=== PATIENT | female | born 1985 | race African-American/Black ===

== ENCOUNTER 2025-08-27 10:38 | Emergency (ER) | payer MEDICAID ==
[~2025-08-27] VITALS: Ht 177.8 cm; Wt 95.0 kg
[2025-08-27 10:40] VITALS: O2SAT 99
[2025-08-27 11:11] LABS: BASOPHILS % 1.1 % (0.0-2.0); EOSINOPHILS % 2.0 % (0.0-5.0); HEMATOCRIT. 44.0 % (36.0-48.0); HEMOGLOBIN. 14.1 g/dL (12.0-16.0); LYMPHOCYTES % 31.0 % (20.0-50.0); MEAN PLATELET VOLUME 10.1 fl (7.4-10.4); MONOCYTES % 7.7 % (2.0-8.0); NEUTROPHILS % 58.2 % (40.0-76.0); PLATELET 223 x1000/uL (130-400); RED BLOOD CELL COUNT 5.46 mill/uL (4.2-5.4); RED CELL DISTRIBUTION WIDTH 15.6 % (11.6-14.6)
[2025-08-27] MEDS: SUCRALFATE 1G TABLET PO SCH (11:12)
[2025-08-27] MEDS: MAGNESIUM/ALUMINUM HYDROXIDE/SIMETHICONE 30ML UDC PO ONE (11:12)
[2025-08-27] MEDS: FAMOTIDINE 20MG/2ML VIAL IV ONE (11:13)
[2025-08-27] MEDS: LACTATED RINGERS 1,000 ML IV SCH (11:13)
[2025-08-27 11:18] LABS: HCG SCREEN NEGATIVE
[2025-08-27 11:24] LABS: CREATININE 0.8 mg/dL (0.6-1.0); UREA NITROGEN BLOOD 11 mg/dL (9-23)
[2025-08-27 11:26] LABS: ASPARTATE AMINOTRANSFERASE 27 IU/L (<34); BILIRUBIN DIRECT 0.1 mg/dL (<=3.0)
[2025-08-27 11:27] LABS: BILIRUBIN TOTAL 0.4 mg/dL (0.1-1.0); PROTEIN TOTAL 7.6 g/dL (6.0-8.3)
[2025-08-27] MEDS: ACETAMINOPHEN 325MG TABLET PO ONE (11:35)
[2025-08-27 12:22] LABS: TROPONIN I HIGH SENSITIVITY < 4 ng/L (3.0-34)
[2025-08-27 12:39] VITALS: BP 118/67; PULSE 70; RESP 13; TEMP 36.8; O2SAT 100
[2025-08-27] MEDS ORDERED: SUCR1TAB30 MT (12:39)
[2025-08-27] MEDS ORDERED: FAMO-134 MT (12:39)
== END 2025-08-27 12:54 | disposition home or self-care (01) ==
LOC: ER 10:38
DX: R10.13 Epigastric pain (principal); R51.9 Headache, unspecified; Z90.49 Acquired absence of other specified parts of digestive tract
CPT/HCPCS: 80076; 80048; 84703; 83690; 85025; 84484; 36415; 93880; 71045; 74176; 76604; 93005; 96361; 96374; 99285; J1308; Z7610 ×2